=== PATIENT | female | born 1930 | race Caucasian/White ===

== ENCOUNTER 2018-02-25 13:51 | Inpatient (IN) | payer OTHER ==
[~2018-02-25] VITALS: Ht 152.4 cm; Wt 57.2 kg
[~2018-02-25 13:51] MED LIST: METROPOLOL
[2018-02-27] MEDS ORDERED: TOPROL XL25 M1 (10:29)
[2018-02-27] MEDS ORDERED: TOPROL XL25 M1 PO (10:29)
[2018-03-05] MEDS ORDERED: TOPROL XL25 M1 PO (13:32)
[2018-03-05] MEDS ORDERED: INTESTINEX680 M1 PO (13:32)
[2018-03-05] MEDS ORDERED: ACID REDUCER20 MG PO (13:32)
[2018-03-05] MEDS ORDERED: Intestinex CAP PO (13:32)
== END 2018-03-05 14:20 | disposition home or self-care (01) | DRG 392 ==
LOC: ER 13:51 → EDBD 15:04 → ER 15:04 → SEC-K 02-26 11:12 → MEDI 02-26 11:12
PROC: 3E0436Z Introduction of Nutritional Substance into Central Vein, Percutaneous Approach (ICD-10-PCS; principal; 2018-02-27)
PROC: 02HV33Z Insertion of Infusion Device into Superior Vena Cava, Percutaneous Approach (ICD-10-PCS; 2018-02-27)
DX: K57.12 Diverticulitis of small intestine without perforation or abscess without bleeding (principal); I10 Essential (primary) hypertension; K83.8 Other specified diseases of biliary tract; K29.00 Acute gastritis without bleeding